=== PATIENT | male | born 1995 | race Caucasian/White ===

== ENCOUNTER 2020-03-11 13:13 | Emergency (ER) | payer OTHER ==
[2020-03-11 13:17] VITALS: BMI 24.0
[2020-03-11 13:26] LABS: BASO % 0.5 % (0-2.0); EOS % 0.4 % (0-4.5); HEMATOCRIT 41.9 % (35.4-49); HEMOGLOBIN 13.9 GM/dL (11.7-16.9); LYMPH % 18.4 % (8-40); MCH 30.2 pg (25.7-33.7); MCHC 33.3 g/dl (32.0-35.9); MEAN CELL VOLUME 90.7 fl (80-96); MONO % 4.4 % (3.8-10.2); NEUT % 76.3 % (42.8-82.8); PLATELET COUNT 197 K/MM3 (134-434); RBC 4.61 M/mm3 (4.00-5.60); RDW 13.9 % (11.9-15.9); WHITE BLOOD COUNT 10.2 K/mm3 (4.0-10.0)
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
[2020-03-11 13:31] LABS: INR 1.03 (0.83-1.09); PROTHROMBIN TIME (PATIENT) 12.2 SEC (9.7-13.0)
[2020-03-11] MEDS ORDERED: SODIUM CHLORIDE 0.9% 500 ML INFUS.BAG IV ONE (13:34)
[2020-03-11 14:17] LABS: ALBUMIN 4.2 g/dl (3.4-5.0); ANION GAP 14 MMOL/L (8-16); BLOOD UREA NITROGEN 19.1 mg/dL (7-18); CALCIUM 9.2 mg/dL (8.5-10.1); CHLORIDE 108 mmol/L (98-107); CO2 21 mmol/L (21-32); CREATININE 1.3 mg/dL (0.55-1.3); LIPASE 54 U/L (73-393); POTASSIUM 3.8 mmol/L (3.5-5.1); SGOT/AST 16 U/L (15-37); SGPT/ALT 20 U/L (13-61); SODIUM 143 mmol/L (136-145); TOT PROT 7.4 g/dl (6.4-8.2)
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
[2020-03-11 14:33] LABS: ALK PHOS 94 U/L (45-117); BILIRUBIN,TOTAL 0.6 mg/dL (0.2-1); GLUCOSE,RANDOM 130 mg/dL (74-106)
--- NOTE | 2020-03-11 14:52 | EKG ---
Test Reason : Blood Pressure : / mmHG Vent. Rate : 098 BPM Atrial Rate : 098 BPM P-R Int : 138 ms QRS Dur : 078 ms QT Int : 344 ms P-R-T Axes : 074 067 024 degrees QTc Int : 439 ms NORMAL SINUS RHYTHM POSSIBLE LEFT ATRIAL ENLARGEMENT NO PREVIOUS ECGS AVAILABLE Confirmed by MARIA EUGENIA GARRISON MD ([id number]) on 03/11/2020 2:51:50 PM Referred By: Confirmed By:MARIA EUGENIA GARRISON MD
[2020-03-11] MEDS ORDERED: morphine CARPU-JECT 4 MG/1 ML DISP.SYRIN IVPUSH ONE (15:54)
[2020-03-11] MEDS ORDERED: morphine SULFATE 4 MG/ML VIAL ONE (16:12)
[2020-03-11 16:28] VITALS: BP 133/63; PULSE 83
== END 2020-03-11 16:28 | disposition short-term general hospital (02) ==
LOC: JER 13:13
PROC: 3E033NZ Introduction of Analgesics, Hypnotics, Sedatives into Peripheral Vein, Percutaneous Approach (ICD-10-PCS; principal; 2020-03-11)
PROC: 3E033GC Introduction of Other Therapeutic Substance into Peripheral Vein, Percutaneous Approach (ICD-10-PCS; 2020-03-11)
DX: I77.2 Rupture of artery (principal); X99.1XXA Assault by knife, initial encounter
CPT/HCPCS: 36415; 75635-TC; 80053; 80307; 83690; 84484; 85025; 85610; 86850; 86900; 86901; 93005; 93010; 99291; Q9967

== ENCOUNTER 2022-05-07 22:58 | Emergency (ER) | payer SELFPAY ==
[2022-05-07 23:08] VITALS: BP 139/91; PULSE 95; RESP 20; TEMP 97.4; BMI 27.2
[2022-05-08] MEDS ORDERED: SODIUM CHLORIDE 1,000 ML IV STA (01:18)
== END 2022-05-07 23:40 | disposition left against medical advice (07) ==
LOC: JER 22:58
DX: R10.9 Unspecified abdominal pain (principal)
CPT/HCPCS: 99283-25; 99284-25